=== PATIENT | female | born 1970 | race Caucasian/White ===

== ENCOUNTER 2018-07-19 09:33 | Emergency (ER) | payer OTHER ==
[~2018-07-19] VITALS: Ht 157.5 cm; Wt 59.0 kg
[2018-07-19] MEDS ORDERED: SERT100 PO (09:44)
[2018-07-19] MEDS ORDERED: LEVSOD75 (09:45)
[2018-07-19] MEDS ORDERED: IBUP600 PO (13:25)
[2018-07-19] MEDS ORDERED: Norco 5-325 Ta1 EACH PO (13:25)
[2018-07-19] MEDS ORDERED: Voltaren100 GM TOP (13:31)
== END 2018-07-19 14:00 | disposition home or self-care (01) ==
LOC: ER 09:33
DX: S43.035A Inferior dislocation of left humerus, initial encounter (principal); S43.015A Anterior dislocation of left humerus, initial encounter; S43.315A Dislocation of left scapula, initial encounter; X50.9XXA Other and unspecified overexertion or strenuous movements or postures, initial encounter; Z88.8 Allergy status to other drugs, medicaments and biological substances; Z79.899 Other long term (current) drug therapy
CPT/HCPCS: 23650; 36415; 73030; 96374-59; 99152; 99283-25; J2270; J7030